=== PATIENT | male | born 1990 | race African-American/Black ===

== ENCOUNTER 2019-08-09 11:01 | Emergency (ER) | payer SELFPAY ==
[~2019-08-09] VITALS: Ht 175.3 cm; Wt 70.3 kg
--- NOTE | 2019-08-09 11:23 | NUR ---
DR WOLFE AT BEDSIDE FOR EVAL.
[2019-08-09] MEDS ORDERED: DEXAMETHASONE SOD PHOSPHATE 10 MG/ML VIAL ONE (11:26)
[2019-08-09] MEDS ORDERED: CEFTRIAXONE 1GM BAG (ER ONLY) 50 ML IV ONE ×2 (11:26→11:27)
[2019-08-09] MEDS ORDERED: IV NS 0.9% 1,000 ML IV ONE (11:30)
[2019-08-09] MEDS ORDERED: CEFTRIAXONE 1GM BAG (ER ONLY) 1 GM/50 ML PIGGYBACK IV ONE (11:30)
[2019-08-09] MEDS ORDERED: DEXAMETHASONE SOD PHOSPHATE 8 MG in IV D5W 50 ML IV ONE (11:30)
--- NOTE | 2019-08-09 13:15 | NUR ---
MEDICATED ORDERED. IV LINE D/C'D. D/C HOME IN STABLE CONDITION.
[2019-08-09 13:18] VITALS: BP 128/84
== END 2019-08-09 13:18 | disposition home or self-care (01) ==
LOC: ER 11:11
DX: J02.9 Acute pharyngitis, unspecified (principal)
CPT/HCPCS: 96365; 96368; 99283; J0696 ×2; J1100 ×2; J7030; J7060